=== PATIENT | female | born 1925 | race Caucasian/White ===

== ENCOUNTER → 2016-12-11 | Outpatient (CLI) | payer OTHER | LOC: CAT 09:37 → EDBD 09:37 → CAT 10:04 | DX: Z12.31 Encounter for screening mammogram for malignant neoplasm of breast (principal); I67.82 Cerebral ischemia; M81.0 Age-related osteoporosis without current pathological fracture; E28.39 Other primary ovarian failure ==

== ENCOUNTER → 2016-12-26 | Outpatient (CLI) | payer OTHER | LOC: ULTRA 11:09 → EDSTATUS 11:16 → ULTRA 13:01 | DX: N63 Unspecified lump in breast (principal) ==

== ENCOUNTER → 2016-12-27 | Outpatient (CLI) | payer OTHER | LOC: RAD 11:41 | DX: N63 Unspecified lump in breast (principal) ==